=== PATIENT | female | born 1975 | race Caucasian/White ===

== ENCOUNTER → 2024-01-21 18:23 | Outpatient (REF) | payer MEDICARE, SELFPAY | LOC: PAVMRI 18:23 | PROVIDERS: ATTENDING PHYSICIAN Podiatrist Foot & Ankle Surgery; FAMILY PHYSICIAN Family Medicine | DX: M76.821 Posterior tibial tendinitis, right leg (principal); G57.51 Tarsal tunnel syndrome, right lower limb | CPT/HCPCS: 73721 ==

== ENCOUNTER → 2024-01-31 08:35 | Outpatient (REF) | payer MEDICARE, SELFPAY | LOC: EMG 08:35 | PROVIDERS: ATTENDING PHYSICIAN Podiatrist Foot & Ankle Surgery; FAMILY PHYSICIAN Family Medicine | DX: G57.51 Tarsal tunnel syndrome, right lower limb (principal); R20.0 Anesthesia of skin | CPT/HCPCS: 95886; 95910 ==

== ENCOUNTER 2024-04-02 15:34 | Emergency (ER) | payer MEDICARE, SELFPAY ==
[2024-04-02 15:37] VITALS: BP 124/86
--- NOTE | 2024-04-02 17:01 | ED.GENMED ---
History of Present Illness
<Arianne Guerrero PA-C - Last Filed: 04/02/24 19:39>
General
Chief Complaint: Extremity Pain (non-traumatic)
Source: patient
Exam Limitations: none
Time Seen by Provider: 04/02/24 16:00
Nursing documentation reviewed up to this point in time: agreed with
History of Present Illness
History of Present Illness:
Patient is a 48-year-old female with history psoriatic arthritis, fibromyalgia presenting for evaluation of left thigh pain. Patient states symptoms started about 6 weeks ago and have been progressively worsening. She describes a burning type pain
in her left lateral thigh near hip extending down toward her left knee. Pain is worse with movement and ambulation. Patient does note that she may feel some 'lumps 'in her left thigh. Patient denies any pain in her back or pain in her left hip.
Patient states pain is becoming increasingly severe and is keeping her up at night.
Patient denies any known trauma. Patient denies any associated chest pain or shortness of breath. Patient denies any fever or chills.
Patient does take 1600 mg of gabapentin and tramadol daily for fibromyalgia pain. She has tried taking some Tylenol in addition for pain with little improvement.
Past History
<Arianne Guerrero PA-C - Last Filed: 04/02/24 19:39>
Past History
ED Past Medical History: Psychiatric and Other (Psoriasis, sciatica)
ED Past Surgical History: Other (Patient has had a uterine ablation in the past for menorrhalgia., , appendectomy)
Social History
Tobacco: Non-smoker
Alcohol: None
Drug: None
Personal:
Living: with family
Employment: Employed
Family History
Family History: Other (Noncontributory)
Review of Systems
<Arianne Guerrero PA-C - Last Filed: 04/02/24 19:39>
Review of Systems
Allergies reviewed?: Yes
All Other Systems: ROS reviewed and negative except as documented in HPI and ROS
Phy Exam
<Arianne Guerrero PA-C - Last Filed: 04/02/24 19:39>
Physical Exam
Physical Exam:
Vitals: Patient's vital signs are stable. Afebrile
General: Patient is well appearing, no acute distress. Nontoxic-appearing
Skin: Warm and dry, no rashes or lesions
Head: Normocephalic, atraumatic
Eyes: Sclera nonicteric. EOMs intact. No nystagmus.
Throat: Protecting airway
Neck: Normal ROM, no cervical spine tenderness, no meningismus
Cardiac: Regular rate and rhythm, no murmurs.
Pulm: Normal respiratory effort, no wheezes, rales, rhonchi heard on exam.
Abdomen: No abdominal tenderness.
Back: No cervical spine or midline spinal tenderness. No rashes or erythema. No tenderness of left paraspinal muscles. Negative straight leg raise on left.
Extremities: Superficial tenderness of left lateral thigh from left hip to left knee without any obvious deformity or edema. No bony tenderness of left lower extremity. No erythema or warmth of lateral thigh. No red streaking of left thigh. Left
knee and left hip nontender with full range of motion. No pain in left calf. Great distal pulse of left lower extremity.
Neuro: AAOx3. CN II-XII intact. No focal neurologic deficits.
Psychiatric: Normal affect.
Course
<Arianne Guerrero PA-C - Last Filed: 04/02/24 19:39>
Vital Signs
Initial and Last Documented VS:
Initial Vital Signs
Temp Pulse Resp BP Pulse Ox
97.6 F 97 18 124/86 99
04/02/24 15:37 04/02/24 15:37 04/02/24 15:37 04/02/24 15:37 04/02/24 15:37
Last Documented Vital Signs
Temp Pulse Resp BP Pulse Ox
97.6 F 88 16 121/80 97
04/02/24 15:37 04/02/24 17:25 04/02/24 17:25 04/02/24 17:25 04/02/24 17:25
<Yovanny Madera DO - Last Filed: 04/02/24 19:51>
Vital Signs
Initial and Last Documented VS:
Initial Vital Signs
Temp Pulse Resp BP Pulse Ox
97.6 F 97 18 124/86 99
04/02/24 15:37 04/02/24 15:37 04/02/24 15:37 04/02/24 15:37 04/02/24 15:37
Last Documented Vital Signs
Temp Pulse Resp BP Pulse Ox
97.6 F 88 16 121/80 97
04/02/24 15:37 04/02/24 17:25 04/02/24 17:25 04/02/24 17:25 04/02/24 17:25
<Arianne Guerrero PA-C - Last Filed: 04/02/24 19:39>
MDM/Problems Addressed
Differential Diagnosis Includes:
Not limited to: Osteoarthritis, neuropathic pain, muscle strain, hematoma
MDM/Problems Addressed:
48-year-old female presenting with 6 weeks of discomfort of her left lateral thigh. No known trauma. No fever, chills, chest pain, shortness of breath. Patient's vital signs are stable. Physical exam as above. No obvious bruising, deformity, or
overlying erythema of left thigh. No bony tenderness of left thigh. Left and left knee nontender with full range of motion. Patient has extreme sensitivity to touch of skin of left lateral thigh originating just inferior to left hip extending
down to left lateral knee with small area of numbness of left anterior thigh. Symptoms most consistent with neuropathic pain. Symptoms seem to follow path of lateral femoral cutaneous nerve. No indication for imaging at this time. Patient
already has ongoing prescription for tramadol and gabapentin for fibromyalgia. Will add short course of steroids and have patient follow with primary care provider. Referral given for pain management, as well. Patient seen with attending physician
Chronic conditions affecting care:
Fibromyalgia
Acute Exacerbation and/or Progression of Chronic Illness:
N/A
<Arianne Guerrero PA-C - Last Filed: 04/02/24 19:39>
*Pulse Oximetry
Patient hypoxic: no
*EKG
Interpreted by ED Provider?: NA
*Training Development Director Interpretation
Rate: Training Development Director- N/A
*Critical Care Note
Total Time (30-74mins, 75-104mins- exclusive of procedures): Not Applicable
ED Attending Note
<Arianne Guerrero PA-C - Last Filed: 04/02/24 19:39>
-
Portions of this chart may have been created with voice recognition software.� Occasional wrong word or��sound alike� substitutions may have occurred due to the inherent limitations of voice recognition software.
<Yovanny Madera DO - Last Filed: 04/02/24 19:51>
ED Attending Note
Patient seen and examined by attending physician: Yes
I performed the substantive portion of visit, reviewed & personally made and approve the management plan that is documented in note by myself or MARCI.: Yes
ED Attending Note:
48-year-old female presents with pain in the left thigh for about 6 weeks that radiates down the lateral aspect across the front above her knee. She reports tingling and burning pain. No motor weakness. She is history of fibromyalgia as well as
psoriatic arthritis. Exam: No focal motor deficits, no cyanosis, normal perfusion to the leg. Assessment and plan: Trial steroids. Patient is already on tramadol at home. Outpatient follow-up recommended.
Discharge Plan
Departure
Patient Disposition: Home (Routine Discharge)
Date of Disposition: 04/02/24
Time of Disposition: 17:16
Patient with high blood pressure during this ER visit?: No
Condition: Good
Covid-19: Not Applicable
Discharge Problem:
Neuropathic pain of left thigh
Instructions: Neuropathic pain
Prescriptions:
New
prednisone 10 mg Tablet
See Rx Instructions .ROUTE .COMPLEX Qty: 30 0RF
Rx Instructions:
Take By Mouth:
40 mg daily x3 days, 30 mg daily x3 days,
20 mg daily x3 days, 10 mg daily x3 days.
No Action
PNV,calcium 84-afmn-giuao acid [ Plus (calcium carb)] 1 EACH tablet
1 ea PO DAILY
sennosides-docusate sodium 1 TABLET tablet
1 tab PO DAILYPRN PRN (Reason: constipation) Qty: 0 0RF
ibuprofen 600 MG tablet
600 mg PO Q6HPRN PRN (Reason: moderate pain/cramps) Qty: 30 2RF
simethicone [Gas Relief 80 (simethicone)] 80 MG tablet,chewable
80 mg PO TIDPRN PRN (Reason: flatulence) Qty: 0 0RF
hydromorphone 2 MG tablet
2 mg PO Q4HPRN PRN (Reason: severe pain) Qty: 15 0RF
Referrals:
Domenic Montgomery MD [Active] - Call in 1-3 days for appt
Erika Adam, [Family Provider] -
Activity Restrictions/Additional Instructions:
RETURN TO THE EMERGENCY DEPARTMENT WITH ANY FEVERS, CHILLS, NUMBNESS/TINGLING IN LOWER EXTREMITIES, LOSS OF BOWEL/BLADDER CONTROL, INABILITY TO AMBULATE, WORSENING IN CURRENT SYMPTOMS, OR ANY OTHER CONCERNS
-As discussed�we suspect that your symptoms are likely related to nerve impingement. We have prescribed a course of steroids that you can take to help decrease inflammation. This has been sent to your pharmacy. Otherwise�you can take Tylenol as
needed for discomfort. You should continue to take your other pain medications as prescribed including gabapentin and tramadol.
-Follow-up with your primary care provider for further evaluation/management to ensure that symptoms are improving
-I have given the name for a bridge painter helper above. You can call his office to schedule an appointment.
Interventions
Interventions:
*Risk Screen - Suicide Last Done: 04/02/24 15:46
*General Assessment Last Done: 04/02/24 15:46
*Neglect/Abuse Screening Last Done: 04/02/24 15:46
ED- Fall Risk Assessment Last Done: 04/02/24 17:25
*ED COVID-19 Vaccine History Last Done: 04/02/24 15:46
*Nursing Disposition Last Done: 04/02/24 17:25
ED-Skin Assessment Last Done: 04/02/24 15:46
ED-Peripheral Vascular Assessment Last Done: 04/02/24 15:46
ED-Musculoskeletal Assessment Last Done: 04/02/24 15:46
Discharge Date and Time
Discharge Date/Time: 04/02/24 17:26
Print Language: NAMIBIAN
[2024-04-02 17:25] VITALS: BP 121/80
== END 2024-04-02 17:26 | disposition home or self-care (01) ==
LOC: EMR 15:34
PROVIDERS: EMERGENCY PHYSICIAN Emergency Medicine; FAMILY PHYSICIAN Family Medicine
DX: M79.2 Neuralgia and neuritis, unspecified (principal); M79.652 Pain in left thigh; L40.50 Arthropathic psoriasis, unspecified; M79.7 Fibromyalgia; Z79.899 Other long term (current) drug therapy
CPT/HCPCS: 99282

== ENCOUNTER → 2024-07-29 12:59 | Outpatient (REF) | payer MEDICARE, SELFPAY | LOC: HWWDC 12:59 | PROVIDERS: ATTENDING PHYSICIAN Family Medicine | DX: Z12.31 Encounter for screening mammogram for malignant neoplasm of breast (principal) | CPT/HCPCS: 77063; 77067 ==

== ENCOUNTER 2025-07-25 12:22 | Emergency (ER) | payer MEDICARE, SELFPAY ==
[2025-07-25 12:24] VITALS: BP 153/96
[2025-07-25 12:46] LABS: Urine Character Clear (Clear)
[2025-07-25 12:51] LABS: Hematocrit 39.3 % (37.0-47.0); Hemoglobin 13.4 g/dL (12.0-16.0); Mean Corp Hgb Conc. 34.1 g/dL (33.0-37.0); Mean Corpuscular Volume 86.4 fL (81.0-99.0); Nucleated Red Blood Cells % 0 %; Platelet Count 256 10^3/uL (130-400); Red Cell Dist. Width 12.9 % (11.5-14.5)
[2025-07-25 12:57] LABS: Urine Squamous Cell 0-2 /LPF (Few); Urine White Cell 26-30 /HPF (0-5)
[2025-07-25 12:58] LABS: ALT (SGPT) 32 U/L (0-35); AST (SGOT) 25 U/L (14-36); Albumin 4.4 g/dl (3.5-5.0); Alkaline Phosphatase 103 U/L (38-126); Blood Urea Nitrogen 11 mg/dl (7-17); Calcium 9.5 mg/dl (8.4-10.2); Carbon Dioxide 28 mmol/L (22-30); Chloride 101 mmol/L (98-107); Glucose 168 mg/dl (70-99); Potassium 4.6 mmol/L (3.5-5.1); Sodium 137 mmol/L (135-145); Total Protein 7.8 g/dl (6.3-8.2); eGFR > 60.00
--- NOTE | 2025-07-25 14:58 | ED.GENMED ---
History of Present Illness
General
Chief Complaint: Urinary Symptoms
Source: patient
Exam Limitations: none
Time Seen by Provider: 07/25/25 14:15
History of Present Illness
History of Present Illness:
50yoF with a history of psoriatic fasciitis on Cosentyx and fibromyalgia presenting for evaluation of fever. Patient reports fever last 3 days with a Tmax of 101.5. She started to experience pain in her right upper quadrant 2 days ago which is
radiating to the right flank and right lower quadrant. She initially thought she may have pulled a muscle. Her urine started to look cloudy and orange-tinged over the past 24 hours. She is nauseous but has not vomited. She denies any shortness
of breath, pleuritic pain, or cough.
Past History
Past History
ED Past Medical History: Psychiatric and Other (Psoriasis, sciatica)
ED Past Surgical History: Other (Patient has had a uterine ablation in the past for menorrhalgia., , appendectomy)
Social History
Tobacco: Non-smoker
Alcohol: None
Drug: None
Personal:
Living: with family
Employment: Employed
Family History
Family History: Other (Noncontributory)
Phy Exam
General Physical Exam
General Presentation: well appearing and no apparent distress
General Skin: warm and dry
General Habitus: normal
General Mental: alert
ENT Exam
ENT Exam: normocephalic
Cardiovascular Exam
Cardiovascular Exam: regular rate/rhythm
Pulmonary Exam
Pulmonary Exam: lungs clear, no respiratory distress, no rales, no crackles, no rhonchi and no wheezing
Gastrointestinal Exam
Gastrointestinal Exam: soft, non distended, no cva tenderness and other (+RUQ tenderness. Abdomen soft. No rebound. No CVA tenderness. )
Neurological Exam
Neurological Exam: alert
[place] Coma Scale
Eye Opening: Spontaneous
Verbal Response: Oriented
Motor Response: Obeys Commands
GCS Total Score: 15
Skin Exam
Skin Exam: normal color and warm/dry
Psychiatric Exam
Psychiatric Exam: normal mood/affect
Course
Orders/Labs/Results
Orders:
Orders
07/25/25 12:35
Complete Blood Count/With Diff Urgent
Comprehensive Metabolic Panel Urgent
07/25/25 12:38
Urinalysis Reflex To Culture Urgent
Date Specimen was Collected: 07/25/25
Time Specimen was Collected: 12:28
Urine Microscopic Reflex Cult Urgent
Urine Culture Urgent
DARNELL Source: U
Specimen Description:
Date Specimen was Collected: 07/25/25
Time Specimen was Collected: 12:28
07/25/25 14:48
CT Abd/pelvis W Iv Cont Urgent
Comment:
Reason For Exam: RUQ pain radiating to R flank, fever
0.9% Sodium Chloride 1000 ml [Nss] 1,000 ml IV BOLUS
07/25/25 18:17
CefTRIAXone [Rocephin] 2,000 mg IV NOW STA
07/25/25 19:03
Ondansetron Injectable [Zofran] 4 mg IV NOW STA
Abnormal Lab Results
07/25/25 07/25/25
12:35 12:38
Glucose 168 H mg/dl
(70-99)
Urine Ketones 1+ A
(Negative)
Ur Occult Blood Reflex 3+ A
(Negative)
Urine Nitrite (Reflex) Positive A
(Negative)
Urine Urobilinogen 2+ A
(Neg - 1+)
Leukocyte Esterase Rfl 2+ A
(Negative)
Urine RBC 3-6 A /HPF
(0-2)
Urine WBC (Reflex) 26-30 A /HPF
(0-5)
Urine Bacteria (Reflex) Many A
(Negative)
Urine Glucose 1+ A
(Negative)
Urine Albumin (Reflex) 2+ A
(Neg - Trace)
07/25/25 12:35
07/25/25 12:35
Vital Signs
Initial and Last Documented VS:
Initial Vital Signs
Temp Pulse Resp BP Pulse Ox
98.4 F 101 19 153/96 98
07/25/25 12:24 07/25/25 12:24 07/25/25 12:24 07/25/25 12:24 07/25/25 12:24
Last Documented Vital Signs
Temp Pulse Resp BP Pulse Ox
98.4 F 101 19 114/73 99
07/25/25 12:24 07/25/25 12:24 07/25/25 12:24 07/25/25 17:35 07/25/25 17:35
MDM/Problems Addressed
Differential Diagnosis Includes:
50yoF here with fevers x 3 days with R flank/RUQ pain x 2 days. Temperature 98.4 on arrival. She is well-appearing no distress. No signs of peritonitis on abdominal exam. Differential diagnosis includes but is not limited to: Pyelonephritis,
UTI, infected kidney stone, cholecystitis, less likely pneumonia
Initial ED plan: Workup initiated in triage. Labs unremarkable including normal white count. UA is nitrite positive with many bacteria. Will check CT abdomen with contrast. IV fluid bolus.
*Pulse Oximetry
SaO2: 98
Patient hypoxic: no
*Critical Care Note
Total Time (30-74mins, 75-104mins- exclusive of procedures): Not Applicable
Update Note
Update Note:
Gallbladder contracted on CT and not fully evaluated. No acute pathology identified. There is a 1.8cm left renal mass noted incidentally for which radiology is recommending outpatient MRI to exclude renal cell carcinoma. Patient informed of this
finding and was given a copy of the radiology report as well as a disc. Clinical presentation consistent with pyelonephritis. Dose of IV Rocephin given in the ED and she was started on a course of cefdinir. Patient advised to call her PCP
[facility] to discuss incidental finding and schedule a follow-up appointment. ED return precautions reviewed. Patient discharged in stable condition.
ED Attending Note
-
Portions of this chart may have been created with voice recognition software.� Occasional wrong word or��sound alike� substitutions may have occurred due to the inherent limitations of voice recognition software.
Discharge Plan
Departure
Patient Disposition: Home (Routine Discharge)
Date of Disposition: 07/25/25
Time of Disposition: 18:18
Patient with high blood pressure during this ER visit?: No
Discharge Problem:
Pyelonephritis, Left kidney mass
Instructions: Urinary tract infection in adults - ED (DC)
Prescriptions:
New
cefdinir 300 mg capsule
300 mg PO BID Qty: 14 0RF
No Action
PNV,calcium 18-mmwh-azzdr acid [ Plus (calcium carb)] 1 EACH tablet
1 ea PO DAILY
sennosides-docusate sodium 1 TABLET tablet
1 tab PO DAILYPRN PRN (Reason: constipation) Qty: 0 0RF
ibuprofen 600 MG tablet
600 mg PO Q6HPRN PRN (Reason: moderate pain/cramps) Qty: 30 2RF
simethicone [Gas Relief 80 (simethicone)] 80 MG tablet,chewable
80 mg PO TIDPRN PRN (Reason: flatulence) Qty: 0 0RF
hydromorphone 2 MG tablet
2 mg PO Q4HPRN PRN (Reason: severe pain) Qty: 15 0RF
prednisone 10 mg Tablet
See Rx Instructions .ROUTE .COMPLEX Qty: 30 0RF
Rx Instructions:
Take By Mouth:
40 mg daily x3 days, 30 mg daily x3 days,
20 mg daily x3 days, 10 mg daily x3 days.
Referrals:
Erika Adam DO [Family Provider, Family Practice]
Activity Restrictions/Additional Instructions:
Take antibiotics as prescribed. Drink plenty of fluids and rest.
Please call your family doctor tomorrow for follow-up. There was a spot on the left kidney that the radiologist was concerned about and recommended an MRI for further evaluation.
Return to the ER with any new or worsening symptoms.
Interventions
Interventions:
*Risk Screen - Suicide Last Done: 07/25/25 12:26
*General Assessment Last Done: 07/25/25 12:26
*Neglect/Abuse Screening Last Done: 07/25/25 12:26
*ED- Fall Risk Assessment Last Done: 07/25/25 15:33
*ED COVID-19 Vaccine History Last Done: 07/25/25 12:26
*ED Influenza Vaccine History Last Done: 07/25/25 12:26
*Nursing Disposition Last Done: 07/25/25 19:17
ED-Female Genitourinary Assessment Last Done: 07/25/25 14:30
Discharge Date and Time
Discharge Date/Time: 07/25/25 19:18
Print Language: CAMBODIAN
[2025-07-25] MEDS: NSS 1000 IV (15:31)
[2025-07-25 15:32] VITALS: BP 124/85
[2025-07-25 17:35] VITALS: BP 114/73
[2025-07-25] MEDS: ROCEPHIN 2000 MG IV (18:51)
[2025-07-25] MEDS: ZOFRAN 4 MG IV (19:11)
== END 2025-07-25 19:18 | disposition home or self-care (01) ==
LOC: EMR 12:22
PROVIDERS: Emergency Medicine; EMERGENCY PHYSICIAN Emergency Medicine; FAMILY PHYSICIAN Family Medicine
DX: N12 Tubulo-interstitial nephritis, not specified as acute or chronic (principal); N28.89 Other specified disorders of kidney and ureter; M79.7 Fibromyalgia; L40.50 Arthropathic psoriasis, unspecified
CPT/HCPCS: 99284; 96374; 96375; 96361; 74177; 80053; 81003; 81015; 85025; 87077; 87086; 87186; Q9967

== ENCOUNTER → 2025-08-03 08:50 | Outpatient (REF) | payer MEDICARE, SELFPAY | LOC: PAVMRI 08:50 | PROVIDERS: ATTENDING PHYSICIAN Family Medicine | DX: D41.00 Neoplasm of uncertain behavior of unspecified kidney (principal); N28.1 Cyst of kidney, acquired | CPT/HCPCS: 74183; A9575 ==